=== PATIENT | male | born 1965 | race African-American/Black ===

== ENCOUNTER 2021-05-02 12:58 | Emergency (ER) | payer MEDICARE, MEDICAID ==
[2021-05-02 13:50] LABS: ALT (SGPT) 18 U/L (8-55); AST (SGOT) 26 U/L (5-34); Albumin 3.9 g/dL (3.5-5.0); Alkaline Phosphatase 60 U/L (40-110); Anion Gap 14 mmol/L (10-20); BUN (Urea Nitrogen) 10 mg/dL (8.4-25.7); Bilirubin, Total 0.5 mg/dL (0.2-1.2); Calc. Creatinine Clearance 0 mL/min (70-130); Calcium 9.8 mg/dL (7.8-10.44); Carbon Dioxide 20 mmol/L (22-29); Chloride 107 mmol/L (98-107); Globulin 3.7 g/dL (2.4-3.5); Glucose 95 mg/dL (70-105); Protein, Total 7.6 g/dL (6.0-8.3); Sodium 137 mmol/L (136-145)
[2021-05-02 13:52] LABS: #Eosinphils 0.3 10x3/uL (0.0-0.5); #Monocytes 0.6 10x3/uL (0.0-1.1); #Neutrophils 4.5 10x3/uL (1.5-8.4); %Basophils 0.4 % (0.0-2.0); %Eosinophils 3.7 % (0.0-6.0); %Lymphocytes 18.2 % (18.0-47.0); %Monocytes 9.5 % (0.0-10.0); %Neutrophils 67.8 % (40.0-75.0); Hemoglobin 15.2 g/dL (13.5-17.5); Mean Corpuscular HGB CONC 33.1 g/dL (32.0-36.0); Mean Corpuscular Hemoglobin 30.6 pg (27.0-33.0); Mean Corpuscular Volume 92.4 fl (81.2-95.1); Mean Platelet Volume 10.1 fl (7.4-10.4); Platelet Count 209 10x3/uL (150-450); RBC Distribution Width 13.9 % (11.5-14.5); Red Blood Cell (RBC) Count 4.97 10x6/uL (4.32-5.72); White Blood Cell (WBC) Count 6.7 10x3/uL (3.5-10.5)
[2021-05-02] MEDS ORDERED: Ondansetron PF 4 MG/2 ML Vial ONE (14:12)
[2021-05-02] MEDS ORDERED: Morphine 4 MG/ML VIAL ONE ×2 (14:12→15:47)
== END 2021-05-02 15:59 | disposition home or self-care (01) ==
LOC: CSHERS 12:58
DX: K52.9 Noninfective gastroenteritis and colitis, unspecified (principal); I10 Essential (primary) hypertension; F17.200 Nicotine dependence, unspecified, uncomplicated
CPT/HCPCS: 74177; 80053; 83605; 85025; 87040; 96374; 96375; J2270; J2405

== ENCOUNTER 2021-08-22 11:07 | Emergency (ER) | payer MEDICARE, MEDICAID ==
[2021-08-22] MEDS ORDERED: HYDROcodone/Acetaminophen 5/325 mg Tablet ONE (11:43)
[2021-08-22] MEDS ORDERED: Ventolin HFA Inhaler 60 PUFF INHALER ONE (11:54)
[2021-08-22] MEDS ORDERED: predniSONE 20 MG TAB ONE (13:08)
[2021-08-22 13:11] LABS: SARS-CoV-2 NAA Rapid Test Not Detected (NotDetected)
== END 2021-08-22 14:17 | disposition home or self-care (01) ==
LOC: CSHERS 11:07
DX: S39.012A Strain of muscle, fascia and tendon of lower back, initial encounter (principal); J20.9 Acute bronchitis, unspecified; F17.200 Nicotine dependence, unspecified, uncomplicated; Z20.822 Contact with and (suspected) exposure to COVID-19
CPT/HCPCS: 0240U; 71045; 94640; 94664; 94760; J7512; J7620

== ENCOUNTER 2022-07-21 12:01 | Emergency (ER) | payer OTHER | END 2022-07-21 15:08 | disposition home or self-care (01) | LOC: CSHERS 12:01 | DX: J10.1 Influenza due to other identified influenza virus with other respiratory manifestations (principal); R11.2 Nausea with vomiting, unspecified; I10 Essential (primary) hypertension; F17.200 Nicotine dependence, unspecified, uncomplicated | CPT/HCPCS: 71045; 87804 ==

== ENCOUNTER 2023-03-16 16:50 | Emergency (ER) | payer OTHER ==
[2023-03-16 17:27] LABS: #Eosinphils 0.3 10x3/uL (0.0-0.5); #Monocytes 0.6 10x3/uL (0.0-1.1); #Neutrophils 2.4 10x3/uL (1.5-8.4); %Basophils 0.7 % (0.0-2.0); %Eosinophils 4.8 % (0.0-6.0); %Lymphocytes 41.5 % (18.0-47.0); %Neutrophils 42.6 % (40.0-75.0); Hemoglobin 15.7 g/dL (13.5-17.5); Mean Corpuscular Hemoglobin 31.6 pg (27.0-33.0); Mean Corpuscular Volume 90.3 fl (81.2-95.1); Mean Platelet Volume 9.9 fl (7.4-10.4); Platelet Count 271 10x3/uL (150-450); RBC Distribution Width 14.5 % (11.5-14.5); Red Blood Cell (RBC) Count 4.97 10x6/uL (4.32-5.72); White Blood Cell (WBC) Count 5.6 10x3/uL (3.5-10.5)
[2023-03-16 17:42] LABS: ALT (SGPT) 34 U/L (8-55); AST (SGOT) 36 U/L (5-34); Albumin 4.4 g/dL (3.5-5.0); Alkaline Phosphatase 75 U/L (40-110); Anion Gap 17 mmol/L (10-20); BUN (Urea Nitrogen) 36 mg/dL (8.4-25.7); Bilirubin, Total 0.6 mg/dL (0.2-1.2); CK (CPK) 168 U/L (30-200); Calc. Creatinine Clearance 0 mL/min (70-130); Calcium 9.5 mg/dL (7.8-10.44); Carbon Dioxide 20 mmol/L (22-29); Chloride 102 mmol/L (98-107); Estimated GFR 41; Globulin 4.1 g/dL (2.4-3.5); Glucose 96 mg/dL (70-105); Lipase 34 U/L (8-78); Magnesium 2.4 mg/dL (1.6-2.6); Potassium 4.5 mmol/L (3.5-5.1); Protein, Total 8.5 g/dL (6.0-8.3); Sodium 134 mmol/L (136-145)
== END 2023-03-16 19:44 | disposition home or self-care (01) ==
LOC: CSHERS 16:50
DX: R55 Syncope and collapse (principal); I10 Essential (primary) hypertension; F17.200 Nicotine dependence, unspecified, uncomplicated; Z79.899 Other long term (current) drug therapy
CPT/HCPCS: 36415; 70450; 71045; 72125; 80053; 82550; 83690; 83735; 83880; 84484; 85025; 93005; 96360

== ENCOUNTER 2024-08-25 23:37 | Emergency (ER) | payer OTHER, MEDICAID ==
[2024-08-26] MEDS ORDERED: Ipratropium/Albuterol 3 ML NEB ONE (00:01)
[2024-08-26] MEDS ORDERED: Dexamethasone 10 MG/ML VIAL ONE (00:18)
[2024-08-26] MEDS ORDERED: Ketorolac Tromethamine 30 MG (1 mL) VIAL ONE (00:18)
== END 2024-08-26 00:55 | disposition home or self-care (01) ==
LOC: CSHERS 23:37
DX: J20.9 Acute bronchitis, unspecified (principal); I10 Essential (primary) hypertension; Z79.899 Other long term (current) drug therapy
CPT/HCPCS: 71046; 93005; J1100; J1885; 96372; J7620